=== PATIENT | male | born 1980 | race Caucasian/White ===

== ENCOUNTER 2018-03-11 11:41 | Emergency (ER) | payer OTHER ==
[~2018-03-11] VITALS: Ht 182.9 cm; Wt 90.0 kg
[2018-03-11 12:00] VITALS: BP 156/91
[2018-03-11] MEDS ORDERED: PERCOCET 5/31 TABLET PO (15:03)
[2018-03-11] MEDS ORDERED: KEFLEX500 MG PO (15:03)
== END 2018-03-11 16:51 | disposition home or self-care (01) ==
LOC: EME 11:41
PROC: 3E0234Z Introduction of Serum, Toxoid and Vaccine into Muscle, Percutaneous Approach (ICD-10-PCS; principal; 2018-03-11)
DX: S92.422A Displaced fracture of distal phalanx of left great toe, initial encounter for closed fracture (principal); S91.202A Unspecified open wound of left great toe with damage to nail, initial encounter; W23.0XXA Caught, crushed, jammed, or pinched between moving objects, initial encounter; Y99.0 Civilian activity done for income or pay; Z23 Encounter for immunization; Z88.0 Allergy status to penicillin
CPT/HCPCS: 73660; 99281; 99284